=== PATIENT | female | born 1955 | race African-American/Black ===

== ENCOUNTER 2021-09-03 09:55 | Outpatient (CLI) | payer OTHER | END 2021-09-03 09:56 | disposition home or self-care (01) | LOC: BICULT 09:55 | PROVIDERS: ATTEND Physician Assistant Medical | DX: K76.0 Fatty (change of) liver, not elsewhere classified (principal); Z86.19 Personal history of other infectious and parasitic diseases | CPT/HCPCS: 76705 ==

== ENCOUNTER 2023-08-04 09:23 | Outpatient (CLI) | payer OTHER | END 2023-08-04 09:24 | disposition home or self-care (01) | LOC: DTY/OP 09:23 | PROVIDERS: ATTEND Student in an Organized Health Care Education/Training Program | DX: E11.9 Type 2 diabetes mellitus without complications (principal) | CPT/HCPCS: 97802 ==